=== PATIENT | female | born 1945 | race Caucasian/White ===

== ENCOUNTER → 2016-10-05 | Day surgery (SDC) | payer MEDICARE ==
[~2016-10-05] VITALS: Ht 168.9 cm; Wt 120.7 kg
[~2016-10-05] MED LIST: *morphine SULFATE 8 MG/ML PERIprocedure ONLY ONE; ACETAMINOPHEN 1000 MG/100 ML VIAL IV ONE; AMLO5TAB2 PO; CHLORHEXIDINE GLUCONATE 2 % 1 PACK (2 CLOTHS) TOPICAL PRN; DO NOT ADM ANY ANTICOAGULANT DRUGS PRN; FURO40TA PO; GLIM2TAB PO; INSULIN HUMAN REGULAR 1,000 UNITS/10 ML VIAL SQ PRN; ISOS60TA PO; LACTATED RINGER'S 1000 ML IV PRN; LOSA50TA PO; MAGN250T2 PO; METF-381 PO; METO2.5T PO; METO50TA PO; METOPROLOL TARTRATE 25 MG TAB PO PRN; MORPHINE SULFATE 4 MG/ML INJ IV PRN; ONDANSETRON HCL 4 MG/2 ML VIAL IV PUSH ONE; ONDANSETRON HCL 4 MG/2 ML VIAL IV PUSH PRN; PANT40TA3 PO; POTA-245 PO; POVIDONE IODINE 5% (ANTISEPSIS KIT) 4 APPLICATIONS EACH NARE PRN; PRAV20TA2 PO; PROPOFOL 200 MG/20 ML AMP IV ONE; SODIUM CHLORID 0.9% 500 ML IV PRN; SUGAMMADEX SODIUM 200 MG/2 ML VIAL IV PUSH ONE; WARF-23 PO; fentaNYL CITRATE 250 MCG/5 ML AMP ONE; oxyCODONE/ACETAMINOPHEN 5 MG/325 MG TAB PO PRN
--- NOTE | 2016-10-05 10:06 | PD.HP.UP ---
H&P Update Note The Pre-Admit History and Physical Examination regarding the above named patient was reviewed (including, but not limited to, vital signs, heart, lungs, co-morbid conditions), and upon re-examination it is noted that: the patient's condition has not significantly changed since the last examination. Saroj La MD Oct 05, 2016 10:06
[2016-10-05 14:38] VITALS: BP 110/57; PULSE 88; RESP 20; TEMP 98.6; O2SAT 95
[2016-10-05 14:48] LABS: AUTOMATED NEUTROPHIL # 4.4 TH/MM3 (1.8-7.7); BASOPHIL % 0.5 % (0.0-2.0); EOSINOPHIL # 0.1 TH/MM3 (0-0.4); EOSINOPHIL % 2.2 % (0.0-4.0); HEMATOCRIT 34.6 % (35.0-46.0); HEMO FLAGS DIFF FINAL; LYMPH % 18.6 % (9.0-44.0); LYMPHOCYTE # 1.2 TH/MM3 (1.0-4.8); MEAN CELL VOLUME 95.2 FL (80.0-100.0); MEAN CORPUSCULAR HGB CONC 32.6 % (32.0-36.0); MONO % 8.2 % (0.0-8.0); NEUT % 70.5 % (16.0-70.0); PLATELET COUNT 209 TH/MM3 (150-450); RED BLOOD COUNT 3.64 MIL/MM3 (4.00-5.30); RED CELL DISTRIBUTION WIDTH 15.9 % (11.6-17.2); WHITE BLOOD COUNT 6.3 TH/MM3 (4.0-11.0)
[2016-10-05 15:14] LABS: INTERNATIONAL NORMALIZED RATIO 1.6 RATIO; PROTHROMBIN TIME - PATIENT 17.5 SEC (9.8-11.6)
--- NOTE | 2016-10-05 16:54 | HHI.PR ---
Immediate Post Op Note Procedure Date: Oct 05, 2016 Pre Op Diagnosis: left buttock abscesses, poss fistula Post Op Diagnosis: same, no fistula Surgeon: Saroj La Machine Printer(s): none Procedure: EUA, irrigation/debridement buttock abscesses Findings: superficial abscesses lt buttock, connected with tunnel Anal canal normal, no fistula Complications: none Specimen(s) removed: none Estimated blood loss: min Anesthesia: General Drains: None IVF Patient Condition: Good Saroj La MD Oct 05, 2016 16:54
[2016-10-05 18:15] VITALS: BP 144/69; PULSE 86; RESP 16; TEMP 98.6; O2SAT 94
--- NOTE | 2016-10-06 09:03 | EKG ---
Date Performed: 10/05/2016 Time Performed: 13:50:33 PTAGE: 71 years EKG: ATRIAL FIBRILLATION WITH RAPID VENTRICULAR RESPONSE ABNORMAL RHYTHM ECG NO PREVIOUS TRACING DOCTOR: Keo Hernadez Interpretating Date/Time 10/06/2016 09:02:00
--- NOTE | 2016-10-07 13:54 | MP ---
cc: GOPI MCCLURE M.D. 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 PROCEDURE Exam under anesthesia with irrigation and debridement of complex abscess fistula of the superficial system of the left buttock. POSTOPERATIVE DIAGNOSIS Multiple abscesses/subcutaneous fistulas of the left buttock region. SURGEON Dr. Mcclure DETAILS OF PROCEDURE The patient was placed in the supine position. After adequate general anesthesia she was turned in the left lateral decubitus position. Her buttocks were taped apart, prepped with Betadine solution and draped in the usual sterile fashion. Examination revealed two very chronic cellulitic openings in the left buttock region. A Nessa clamp was used to connect the two in a subcutaneous tunnel. The roof of this abscess fistula was opened and the granulation tissue along the bed of the abscess was curetted. It was not really close to the anal canal but rectal exam was performed and no connection between this abscess or fistula could be demonstrated to extend into the anal rectal canal. The base of the cavity was curetted until all granulation tissue was removed. Some of the external chronically inflamed skin was removed for easier wound care and dressing changes. Hemostasis was achieved. The cavity was then irrigated copiously and packed loosely with several large Fluff dressings externally and a big ABD pad on top. The patient tolerated the procedure quite well and was brought to the recovery room in stable condition. MD GUNJAN Hubbard/RODRIGUEZ /5:07 PM /1:51 PM
== END | disposition home or self-care (01) ==
LOC: HSDC 13:18
PROVIDERS: ATTEND Colon & Rectal Surgery
DX: L02.31 Cutaneous abscess of buttock (principal); I10 Essential (primary) hypertension; I48.91 Unspecified atrial fibrillation
CPT/HCPCS: 00300; 10061; 36415; 85025; 85610; 93005; J0131; J2270; J2405; J3010; J7120